=== PATIENT | male | born 1985 | race Caucasian/White ===

== ENCOUNTER 2018-05-30 15:00 | Emergency (ER) | payer BC ==
[2018-05-30] MEDS ORDERED: NORMAL SALINE 1000 ML 1,000 ML IV ONE ×2 (15:17→16:07)
[2018-05-30 15:28] LABS: ABSOLUTE BASOPHILS # (AUTO) 0.1 10^3/uL (0.0-0.2); ABSOLUTE EOSINOPHILS # (AUTO) 0.1 10^3/uL (0.0-0.6); ABSOLUTE LYMPHOCYTES (AUTO) 2.6 10^3/uL (0.5-4.7); ABSOLUTE MONOCYTES (AUTO) 0.5 10^3/uL (0.1-1.4); ABSOLUTE NEUT (AUTO) 13.4 10^3/uL (1.7-8.2); BASOPHILS % (AUTO) 0.4 % (0-2); EOSINOPHILS % (AUTO) 0.5 % (0-6); HEMATOCRIT 43.7 % (37.9-51.0); LYMPHOCYTES % (AUTO) 15.5 % (13-45); MEAN CORPUSCULAR HEMOGLOBIN 31.1 pg (27.0-33.4); MEAN CORPUSCULAR HGB CONC 34.3 g/dL (32.0-36.0); MEAN CORPUSCULAR VOLUME 91 fl (80-97); PLATELET COUNT 253 10^3/uL (150-450); RED BLOOD COUNT 4.82 10^6/uL (4.35-5.55); RED CELL DISTRIBUTION WIDTH 13.8 % (11.5-14.0); SEGMENTED NEUTROPHILS % (AUTO) 80.6 % (42-78); TOTAL CELLS COUNTED % (AUTO) 100 %; WHITE BLOOD COUNT 16.6 10^3/uL (4.0-10.5)
--- NOTE | 2018-05-30 15:38 | RADIOLOGY REPORT (SQ) ---
EXAM DESCRIPTION: CHEST 2 VIEWS COMPLETED DATE/TIME: 05/30/2018 3:30 pm REASON FOR STUDY: 10; chest pain COMPARISON: None. EXAM PARAMETERS: NUMBER OF VIEWS: two views TECHNIQUE: Digital Frontal and Lateral radiographic views of the chest acquired. RADIATION DOSE: NA LIMITATIONS: none FINDINGS: LUNGS AND PLEURA: No opacities, masses or pneumothorax. No pleural effusion. MEDIASTINUM AND HILAR STRUCTURES: No masses or contour abnormalities. HEART AND VASCULAR STRUCTURES: Heart normal size. No evidence for failure. BONES: No acute findings. HARDWARE: None in the chest. OTHER: No other significant finding. IMPRESSION: No acute abnormality of the lungs. TECHNICAL DOCUMENTATION: JOB ID: [id number] [employer]- All Rights Reserved Reading location - IP/workstation name: [email or web address]
--- NOTE | 2018-05-30 16:16 | ER Document Report ---
ED Syncope and Near Syncope - General Chief Complaint: Syncope Stated Complaint: CHEST PAIN Time Seen by Provider: 05/30/18 15:13 Information source: Patient Notes: 32-year-old male who presents today with an unwitnessed syncopal-like episode. Patient states he has been sober for 6 months but started to drink up to 8 bottles of wine a day starting 7 days ago. His last drink was this morning. Patient states he was walking down the hallway when he awoke on the floor. He denies incontinence. He denies a history of alcohol withdrawal seizures. His last drink was this morning. Patient states around 25 minutes after he got up he started to have some nonradiating substernal chest discomfort and this scared him. Denies shortness of breath, calf pain or leg swelling, recent trips or travel. No history of DVT/PE. Patient in the room has exceptional family support including his aunt and his girlfriend. Patient is actually very affluent noting multiple [place]. He has no suicidal or homicidal ideations. He states he is going to go to a rehab facility if and when cleared here at this facility. TRAVEL OUTSIDE OF THE [place] IN LAST 30 DAYS: No - Related Data Allergies/Adverse Reactions: No Known Allergies Allergy (Unverified 05/30/18 15:54) Past Medical History - Social History Smoking Status: Unknown if Ever Smoked Family History: Reviewed & Not Pertinent Review of Systems - Review of Systems Constitutional: denies: Fever EENT: denies: Eye discharge, Nose discharge Cardiovascular: Chest pain, Heart racing. denies: Palpitations Respiratory: denies: Short of breath Gastrointestinal: denies: Vomiting Genitourinary: denies: Dysuria Musculoskeletal: denies: Leg swelling Skin: Other - no hives. denies: Rash Neurological/Psychological: Other - no slurred speech -: Yes All other systems reviewed and negative Physical Exam - Vital signs Vitals: Temp Pulse Resp BP Pulse Ox 98.7 F 125 H 29 H 132/92 H 91 L 05/30/18 15:30 05/30/18 15:30 05/30/18 15:30 05/30/18 15:30 05/30/18 15:30 Notes: Reviewed vital signs and nursing note as charted by RN. CONSTITUTIONAL: Alert and oriented and responds appropriately to questions. Well -appearing; well-nourished; no active tremors present HEAD: Normocephalic; atraumatic EYES: PERRL; Conjunctivae clear, sclerae non-icteric ENT: Normal nose; no rhinorrhea; moist mucous membranes; pharynx without lesions noted NECK: Supple without meningismus; non-tender; no cervical lymphadenopathy, no masses CARD: Tachycardic and regular; no murmurs; symmetric distal pulses RESP: Normal chest excursion without splinting or tachypnea; breath sounds clear and equal bilaterally; no wheezes, no rhonchi, no rales ABD/GI: Normal bowel sounds; non-distended; soft, non-tender BACK: The back appears normal and is non-tender to palpation EXT: Normal ROM in all joints; non-tender to palpation; no edema SKIN: No acute lesions noted NEURO: CN 2-12 intact; 5/5 bilateral upper and lower extremity strength with sensation intact to light touch PSYCH: The patient's mood and manner are appropriate. Grooming and personal hygiene are appropriate Course - Re-evaluation Re-evalutation: Given the above history and physical examination with tachycardia, with no history of alcohol withdrawal seizures, no incontinence No headaches or focal neurological deficits, I do believe an alcohol withdrawal seizure or intracranial process to be unlikely. Given the tachycardia with the chest discomfort, with initial oxygen room air saturation at 91, I will obtain basic labs, cardiac labs, and a d-dimer. EKG shows a heart rate of 125, sinus tachycardia, normal axis, no obvious ST elevation or depression, narrow QRS. 05/30/18 16:24 Cardiac labs and d-dimer as recorded. Heart rate is currently 115. Patient denies any chest pain at this time. 05/30/18 16:29 Chest x-ray shows normal heart, normal mediastinum, no fractures, normal lung stone, no pneumothorax. 05/30/18 17:10 Blood alcohol level as recorded. CT scan of the chest as recorded. Patient's heart rate is currently 104. Second liter of fluid is infusing. Patient still has no pain or focal neurological deficits. 05/30/18 17:17 Patient's heart rate is now 98. Satting 98% on room air. He denies any and all pain. Family is in the room and is very supportive. Patient states he will go to a rehab facility. He does not want us to set this up for him. He states he has an addictionologist as well as a psychologist to do this for him. - Vital Signs Vital signs: Temp Pulse Resp BP Pulse Ox 98.7 F 125 H 29 H 132/92 H 91 L 05/30/18 15:30 05/30/18 15:30 05/30/18 15:30 05/30/18 15:30 05/30/18 15:30 - Laboratory Result Diagrams: 05/30/18 15:08 05/30/18 15:08 Laboratory results interpreted by me: 05/30/18 05/30/18 05/30/18 15:08 15:08 15:08 WBC 16.6 H Seg Neutrophils % 80.6 H Absolute Neutrophils 13.4 H D-Dimer 0.76 H Glucose 135 H Discharge - Discharge Clinical Impression: Syncope and collapse Alcohol intoxication Qualifiers: Complication of substance-induced condition: uncomplicated Qualified Code(s): F10.920 - Alcohol use, unspecified with intoxication, uncomplicated Chest pain Qualifiers: Chest pain type: unspecified Qualified Code(s): R07.9 - Chest pain, unspecified Condition: Good Disposition: HOME, SELF-CARE Additional Instructions: Come back immediately with any return of pain, lightheadedness or dizziness, fevers, shortness of breath, leg swelling, or any other acute problems. Please make sure that she follow-up for treatment as we have discussed. God bless your efforts. You can do it if YOU want to.
[2018-05-30 16:29] LABS: ALCOHOL 246 mg/dL (NONE DETECTED); ANION GAP 17 (5-19); BLOOD UREA NITROGEN 12 mg/dL (7-20); CALCIUM 8.9 mg/dL (8.4-10.2); CARBON DIOXIDE 23 mmol/L (22-30); CHLORIDE 101 mmol/L (98-107); GLUCOSE 135 mg/dL (75-110); POTASSIUM 4.3 mmol/L (3.6-5.0); SODIUM 141.3 mmol/L (137-145)
--- NOTE | 2018-05-30 16:55 | RADIOLOGY REPORT (SQ) ---
EXAM DESCRIPTION: CTA CHEST COMPLETED DATE/TIME: 05/30/2018 4:40 pm REASON FOR STUDY: 10; chest pain with elevated d dimer COMPARISON: Chest radiograph 05/30/2018 TECHNIQUE: CT scan of the chest performed using helical scanning technique with dynamic intravenous contrast injection. Images reviewed with lung, soft tissue and bone windows. Reconstructed coronal and sagittal MPR images reviewed. Additional 3 dimensional post-processing performed to develop Maximal Intensity Projection images (LA P). All images stored on PACS. All CT scanners at this facility use dose modulation, iterative reconstruction, and/or weight based d osing when appropriate to reduce radiation dose to as low as reasonably achievable (ALARA). [facility]: Dose Right [facility]: CareDose [facility]: Dose Right [facility]: Teradose 4D [facility]: BioActor CONTRAST TYPE AND DOSE: contrast/concentration: Isovue 350.00 mg/ml; Total Contrast Delivered: 79.0 ml; Total Saline Delivered: 80.0 ml Contrast bolus optimized for the pulmonary arteries. Not diagnostic for the aorta RENAL FUNCTION: None required. The patient is less than 50 years old. RADIATION DOSE: CT Rad equipment meets quality standard of care and radiation dose reduction techniq ues were employed. CTDIvol: 15.5 - 24.8 mGy. DLP: 547 mGy-cm. . LIMITATIONS: None. FINDINGS: LUNGS AND PLEURA: No masses, infiltrates, or pneumothorax. No pleural effusions or pleura l calcifications. AORTA AND GREAT VESSELS: Ectatic ascending aorta. Contrast bolus timing optimized for evaluation of the aorta. HEART: No pericardial effusion. No significant coronary artery calcifications. PULMONARY ARTERIES: No emboli visualized in the main pulmonary arteries or the segmental branches. HILAR AND MEDIASTINAL STRUCTURES: No masses or lymphadenopathy. Hiatal hernia. HARDWARE: None in the chest. UPPER ABDOMEN: Diffuse fatty infiltration consistent with hepatic steatosis. Superimposed focal fatt y infiltration of the right hepatic lobe. No acute findings. THYROID AND OTHER SOFT TISSUES: No masses. No adenopathy. BONES: No acute or significant finding. 3D MIPS: Confirm above findings. OTHER: No other significant finding. IMPRESSION: No central or segmental pulmonary emboli. Chronic and incidental findings as detailed a belgica. COMMENT: Quality ID # [id number]: Final reports with documentation of one or more dose reduction techniques (e.g., Automated exposure control, adjustment of the mA and/or kV according to patient size, use of iterative reconstruction technique) TECHNICAL DOCUMENTATION: JOB ID: [id number] [employer]- All Rights Reserved Reading location - IP/workstation name: [email or web address]
--- NOTE | 2018-05-30 17:25 | EKG REPORT ---
SEVERITY:- OTHERWISE NORMAL ECG - SINUS TACHYCARDIA : Confirmed by: Dallas Marion MD 30-May-2018 17:24:44
[2018-05-30 18:13] VITALS: BP 149/94
== END 2018-05-30 18:12 | disposition home or self-care (01) ==
LOC: ER 15:00
DX: R07.9 Chest pain, unspecified (principal); F10.129 Alcohol abuse with intoxication, unspecified; R55 Syncope and collapse; R00.0 Tachycardia, unspecified
CPT/HCPCS: 93005; 99285; 96360; 96361; 36415; 80307; 82550; 85025; 80048; 84484; 85379; 71046; 71275; 93010; J7030

== ENCOUNTER 2019-07-11 09:40 | Emergency (ER) | payer BC ==
[2019-07-11] MEDS ORDERED: NORMAL SALINE 1000 ML 1,000 ML IV ONE ×2 (10:03→12:49)
[2019-07-11 10:24] LABS: ABSOLUTE BASOPHILS # (AUTO) 0.1 10^3/uL (0.0-0.2); ABSOLUTE LYMPHOCYTES (AUTO) 3.1 10^3/uL (0.5-4.7); ABSOLUTE NEUT (AUTO) 9.2 10^3/uL (1.7-8.2); BASOPHILS % (AUTO) 0.7 % (0-2); EOSINOPHILS % (AUTO) 0.2 % (0-6); HEMOGLOBIN 16.9 g/dL (13.5-17.0); LYMPHOCYTES % (AUTO) 23.4 % (13-45); MEAN CORPUSCULAR HEMOGLOBIN 32.7 pg (27.0-33.4); MEAN CORPUSCULAR VOLUME 91 fl (80-97); MONOCYTES % (AUTO) 7.3 % (3-13); PLATELET COUNT 416 10^3/uL (150-450); RED BLOOD COUNT 5.18 10^6/uL (4.35-5.55); RED CELL DISTRIBUTION WIDTH 13.7 % (11.5-14.0); SEGMENTED NEUTROPHILS % (AUTO) 68.4 % (42-78); TOTAL CELLS COUNTED % (AUTO) 100 %; WHITE BLOOD COUNT 13.4 10^3/uL (4.0-10.5)
[2019-07-11 10:27] LABS: INTERNATIONAL RATION (INR) 0.95; PROTHROMBIN TIME 12.7 SEC (11.4-15.4)
[2019-07-11 10:28] LABS: PARTIAL THROMBOPLASTIN TIME 27.3 SEC (23.5-35.8)
--- NOTE | 2019-07-11 10:32 | RADIOLOGY REPORT (SQ) ---
EXAM DESCRIPTION: CHEST SINGLE VIEW IMAGES COMPLETED DATE/TIME: 07/11/2019 10:15 am REASON FOR STUDY: ams COMPARISON: None. EXAM PARAMETERS: NUMBER OF VIEWS: One view. TECHNIQUE: Single frontal radiographic view of the chest acquired. RADIATION DOSE: NA LIMITATIONS: None. FINDINGS: LUNGS AND PLEURA: No opacities, masses or pneumothorax. No pleural effusion. MEDIASTINUM AND HILAR STRUCTURES: No masses. Contour normal. HEART AND VASCULAR STRUCTURES: Heart normal in size. Normal vasculature. BONES: No acute findings. HARDWARE: None in the chest. OTHER: No other significant finding. IMPRESSION: NO ACUTE RADIOGRAPHIC FINDING IN THE CHEST. TECHNICAL DOCUMENTATION: JOB ID: [id number] 2010 [employer]- All Rights Reserved Reading location - IP/workstation name: [email or web address]
[2019-07-11 10:36] LABS: ALBUMIN 5.4 g/dL (3.5-5.0); ALCOHOL 287 mg/dL (NONE DETECTED); ALKALINE PHOSPHATASE 149 U/L (38-126); ASPARTATE AMINO TRANSFERASE 42 U/L (17-59); BILIRUBIN,DIRECT 0.2 mg/dL (0.0-0.4); BILIRUBIN,TOTAL 0.8 mg/dL (0.2-1.3); BLOOD UREA NITROGEN 12 mg/dL (7-20); CALCIUM 9.6 mg/dL (8.4-10.2); GLUCOSE 110 mg/dL (75-110); SALICYLATE 2.1 mg/dL (2.0-20.0)
[2019-07-11 10:37] LABS: ACETAMINOPHEN < 10 ug/mL (10-30)
--- NOTE | 2019-07-11 10:38 | RADIOLOGY REPORT (SQ) ---
EXAM DESCRIPTION: CT HEAD WITHOUT IMAGES COMPLETED DATE/TIME: 07/11/2019 10:16 am REASON FOR STUDY: ams COMPARISON: None. TECHNIQUE: Axial images acquired through the brain without intravenous contrast. Images reviewed wi th bone, brain and subdural windows. Additional sagittal and coronal reconstructions were generated. Images stored on PACS. All CT scanners at this facility use dose modulation, iterative reconstruction, and/or weight based d osing when appropriate to reduce radiation dose to as low as reasonably achievable (ALARA). [facility]: Dose Right [facility]: CareDose [facility]: Dose Right [facility]: Teradose 4D [facility]: Branded Reality RADIATION DOSE: CT Rad equipment meets quality standard of care and radiation dose reduction techniq ues were employed. CTDIvol: 53.2 mGy. DLP: 1044 mGy-cm. mGy. LIMITATIONS: None. FINDINGS: VENTRICLES: Normal size and contour. CEREBRUM: No masses. No hemorrhage. No midline shift. No evidence for acute infarction. Normal gra y/white matter differentiation. No areas of low density in the white matter. CEREBELLUM: No masses. No hemorrhage. No alteration of density. No evidence for acute infarction. EXTRAAXIAL SPACES: No fluid collections. No masses. ORBITS AND GLOBE: No intra- or extraconal masses. Normal contour of globe without masses. CALVARIUM: No fracture. PARANASAL SINUSES: No fluid or mucosal thickening. SOFT TISSUES: No mass or hematoma. OTHER: No other significant finding. IMPRESSION: NORMAL BRAIN CT WITHOUT CONTRAST. EVIDENCE OF ACUTE STROKE: NO. COMMENT: Quality ID # [id number]: Final reports with documentation of one or more dose reduction techniques (e.g., Automated exposure control, adjustment of the mA and/or kV according to patient size, use of iterative reconstruction technique) TECHNICAL DOCUMENTATION: JOB ID: [id number] 2010 [employer]- All Rights Reserved Reading location - IP/workstation name: [email or web address]
[2019-07-11 10:41] LABS: CARBON DIOXIDE 16 mmol/L (22-30); CHLORIDE 94 mmol/L (98-107)
[2019-07-11 10:42] LABS: ANION GAP 26 (5-19)
[2019-07-11 11:08] LABS: VENOUS BLOOD BASE EXCESS -7.7 mmol/L; VENOUS BLOOD HCO3 16.3 mmol/L (20-32); VENOUS BLOOD PCO2 30.5 mmHg (35-63); VENOUS BLOOD PH 7.35 (7.30-7.42)
[2019-07-11 12:04] LABS: APPEARANCE,URINE CLEAR; BILIRUBIN,URINE NEGATIVE (NEGATIVE); COLOR,URINE YELLOW; GLUCOSE, URINE NEGATIVE (NEGATIVE); KETONES,URINE 20 mg/dL (NEGATIVE); PROTEIN,URINE 100 mg/dL (NEGATIVE); UROBILINOGEN,URINE NEGATIVE mg/dL (<2.0)
[2019-07-11 12:22] LABS: URINE AMPHETAMINES SCREEN NEGATIVE; URINE BARBITURATES SCREEN NEGATIVE; URINE BENZODIAZEPINES SCREEN NEGATIVE; URINE COCAINE SCREEN NEGATIVE; URINE MARIJUANA (THC) SCREEN NEGATIVE; URINE METHADONE SCREEN NEGATIVE; URINE PHENCYCLIDINE SCREEN NEGATIVE
--- NOTE | 2019-07-11 13:19 | ER Document Report ---
ED General - General TRAVEL OUTSIDE OF THE [place] IN LAST 30 DAYS: No <PRIYANKA OGDEN - Last Filed: 07/11/19 14:11> <EVELYN BOWEN - Last Filed: 07/11/19 16:45> - General Chief Complaint: Chest Pressure Stated Complaint: ALTERED MENTAL STATUS Time Seen by Provider: 07/11/19 09:44 - HPI Notes: Chief complaint: Chest pain, syncope and altered mental status History of present illness: [employer] contacted EMS because patient was complaining of chest pain and they also noted that he "was not acting right". [employer] Registrar was advised that he had "probably passed out" while sitting in his office. Preliminary information regarding this gentleman was primarily obtained from EMS as he was somewhat incoherent and appeared to be quite intoxicated when he arrived here. Patient initially denied any use of drugs or alcohol when I spoke with him. He stated that he was having burning discomfort in the center of his chest without radiation. He denied vomiting. He denies any history of current treatment for any medical condition and specifically denies any known history of CAD, diabetes mellitus or hypertension. States that he is an occasional smoker. Denies family history of cardiac disease. I went back and reviewed past medical records and find this man was here with an almost identical presentation approximately 1 year ago in the emergency department. He was quite intoxicated at that time and was offered but declined detox referral. Patient denies any suicidal or homicidal intent. Denies hallucinations. He continues to deny that he is drinking. (PRIYANKA OGDEN) - Related Data Allergies/Adverse Reactions: No Known Allergies Allergy (Unverified 05/30/18 15:54) Past Medical History - General Information source: Patient, Emergency Med Personnel, [facility] Records - Social History Smoking Status: Current Some Day Smoker Frequency of alcohol use: Heavy - Patient denies use of alcohol but is obviously quite intoxicated at this time with heavy aroma of alcohol present. Past records indicate heavy abuse of alcohol. Drug Abuse: None Occupation: Realtor Family History: Reviewed & Not Pertinent Patient has suicidal ideation: No Patient has homicidal ideation: No - Past Medical History Cardiac Medical History: Reports: None Endocrine Medical History: Denies: Hx Diabetes Mellitus Type 1, Hx Diabetes Mellitus Type 2 Renal/ Medical History: Denies: Hx Peritoneal Dialysis Past Surgical History: Reports: Hx Orthopedic Surgery <PRIYANKA OGDEN - Last Filed: 07/11/19 14:11> Review of Systems - Review of Systems -: Yes ROS unobtainable due to patient's medical condition <PRIYANKA OGDEN - Last Filed: 07/11/19 14:11> Physical Exam <PRIYANKA OGDEN - Last Filed: 07/11/19 14:11> - Vital signs Vitals: Resp Pulse Ox 14 93 07/11/19 09:45 07/11/19 09:45 - Notes Notes: GENERAL: Well-developed well-nourished male appearing approximately stated age with strong odor of alcohol present and slurred speech and ataxia noted. SKIN: Slightly flushed. Good turgor. HEAD: Normocephalic atraumatic. EYES: PERRLA. EOMI. Conjunctivae bilaterally injected. EARS: CANALS AND TMS CLEAR. NOSE: CLEAR. MOUTH: Moist mucosa. Good dentition. No stridor or edema. No drooling. Throat: Clear. NECK: Supple. No masses or thyromegaly. No adenopathy. Carotids 2+ without bruits. No JVD. BACK: Symmetrical without tenderness. CHEST: Respirations unlabored. Breath sounds clear and symmetrical. HEART: Tachycardic regular rhythm. No murmur gallop or rub. ABDOMEN: Soft nontender without masses, organomegaly or rebound. Bowel sounds normally active. No bruits. GENITALIA: Deferred. EXTREMITIES: No edema. No calf tenderness. Cap refill less than 1.5 seconds. Dorsalis pedis and posterior tibial pulses 3+ and symmetrical. NEUROLOGICAL: GCS 15. Awake and somewhat slow to respond but oriented x3. Normal gait. Very slurred speech. Cranial nerves II through XII intact. Sensorimotor normal. Ataxic. Normal tone. (PRIYANKA OGDEN) Course - Laboratory Result Diagrams: 07/11/19 09:50 07/11/19 09:50 - Diagnostic Test Radiology reviewed: Reports reviewed - Normal noncontrast head CT per radiolog ist. Normal chest x-ray per radiologist. <OGDENPRIYANKA - Last Filed: 07/11/19 14:11> - Laboratory Result Diagrams: 07/11/19 09:50 07/11/19 09:50 <EVELYN BOWEN - Last Filed: 07/11/19 16:45> - Re-evaluation Re-evalutation: 07/11/19 13:23 EMS noted that the patient had an elevated lactate level 5.1. His alcohol here is about 287. His urine drug screen is negative. His initial venous pH is 7.33 with a lactate here of around 5. He is tachycardic. His overall appearance as well as clinical story would suggest to me that he may have had a seizure and w as postictal at time of transport here. He is obviously quite intoxicated. His head CT and chest x-ray are normal. White count is mildly elevated 13.2. Temperature was 99. He has no obvious source of infection by exam here. I go to give him some IV hydration and recheck a lactate. His twelve-lead EKG shows sinus tachycardia and is otherwise unremarkable. His initial troponin is normal. He is no longer complaining of any chest discomfort and this really sounds more like something of GI origin. Plan is to observe him for a while in emergency department with some IV hydration and then repeat blood alcohol, lactate, troponin and EKG. Patient was confronted with the high alcohol level and continues to deny abuse of alcohol. He stated that he wanted to sign himself out AMA. I told him at this level of alcohol intoxication this is not appropriate and try to persuade him to stay for several hours to complete work-up and to allow the alcohol to be metabolized. He is vehemently opposed to this and for this reason I will place him under involuntary commitment. I have requested consultation with the behavioral health service. 07/11/19 14:12 Further care of this patient is turned over to Dr. Bhatti at 1412 hrs. with final disposition pending. (PRIYANKA OGDEN) - Vital Signs Vital signs: Temp Pulse Resp BP Pulse Ox 99.8 F 21 H 137/112 H 94 07/11/19 09:53 07/11/19 09:54 07/11/19 09:54 07/11/19 09:54 - Laboratory Laboratory results interpreted by me: 07/11/19 07/11/19 07/11/19 09:50 09:50 09:50 WBC 13.4 H Absolute Neuts (auto) 9.2 H VBG pCO2 VBG HCO3 Sodium 136.1 L Chloride 94 L Carbon Dioxide 16 L Anion Gap 26 H Lactic Acid 5.2 H Alkaline Phosphatase 149 H Ammonia Total Protein 9.0 H Albumin 5.4 H Urine Protein Urine Ketones Urine Blood Acetaminophen < 10 L 07/11/19 07/11/19 07/11/19 10:50 10:50 11:45 WBC Absolute Neuts (auto) VBG pCO2 30.5 L VBG HCO3 16.3 L Sodium Chloride Carbon Dioxide Anion Gap Lactic Acid Alkaline Phosphatase Ammonia < 8.7 L Total Protein Albumin Urine Protein 100 H Urine Ketones 20 H Urine Blood SMALL H Acetaminophen 07/11/19 07/11/19 12:00 13:40 WBC Absolute Neuts (auto) VBG pCO2 VBG HCO3 Sodium Chloride Carbon Dioxide Anion Gap Lactic Acid 4.8 H 4.4 H Alkaline Phosphatase Ammonia Total Protein Albumin Urine Protein Urine Ketones Urine Blood Acetaminophen - EKG Interpretation by Me Additional EKG results interpreted by me: 07/11/19 14:06 Twelve-lead EKG from 1003 hrs. reviewed contemporaneously by me demonstrates sinus tachycardia rate of 122. Intervals are normal. QRS axis is +[address]/T wave changes. (PRIYANKA OGEDN) Discharge <PRIYANKA OGDEN - Last Filed: 07/11/19 14:11> <EVELYN BOWEN - Last Filed: 07/11/19 16:45> - Discharge Clinical Impression: Chronic alcoholism, Altered mental status associated with intoxication Acute alcohol intoxication Qualifiers: Complication of substance-induced condition: with unspecified complication Qualified Code(s): F10.929 - Alcohol use, unspecified with intoxication, unspecified Condition: Stable Disposition: HOME, SELF-CARE Additional Instructions: Acute Alcohol Intoxication Your evaluation revealed very high levels of alcohol. You can from d rinking a large amount of alcohol rapidly! Further, there's the risk of falls, traffic accidents, and fights. A high portion (about 50 percent) of the serious injuries seen in hospital emergency rooms are caused by alcohol. Alcohol overdosage is usually due to an underlying emotional or psychiatric problem. You may benefit from counselling. If "binge" drinking is an ongoing problem for you, or if you drink ANY AMOUNT of alcohol EVERY day, you most likely have a tendency to alcoholism. You should avoid alcohol totally. We can refer you for treatment. Persons with alcohol problems are often also prone to other addictions -- you should discuss any use of medications or drugs with the doctor. You should be watched at home for the next several hours by someone who has not been drinking. Get extra fluids for the next 24 hours. Call the doctor if there is repeated vomiting, increasing headache, decreasing level of alertness, or any other worsening.
--- NOTE | 2019-07-11 15:09 | ER Document Report ---
Doctor's Note Notes: 07/11/19 14:14 Met with Patient who reported he had dinner with his now ex-girlfriend last evening starting about 8 pm. He indicated he began drinking white wine at about the same time. He reported eating a baked potato, steak and asparagus. He indicated he ended the relationship with his girlfriend and continued to drink wine throughout the night and into container finisher. He reported waking at approximately 6 am and driving to the office. He indicated that once at the office, he began experiencing pressure and pain in his chest, resulting in his call to EMS. Patient stated once at [facility] and after initial triage and treatment, he wanted to leave, but the ED Physician advised him he could not yet leave as his MILAGRO was too high (287) and the physician would place him on IVC if he tried to leave AMA. Patient continued to voice his distaste for this approach, stated he was going to call the OFFICE SUPPORT Alissa Tamez, but was advised there were formal measures to file a complaint if he chose and advised he might want to wait until he was more sober as his MILAGRO was more than 4 times the legal limit. Discussed with Patient he had every right to file a complaint but would want him to have his thoughts organized and clear when doing so. Provided Patient with a Patient's Rights handout with information on how to file a complaint if he chooses to do such. Patient was agreeable that he should be more sober before taking such action. Continued discussion with Patient regarding his drinking habits. He indicated he drinks about once a year and identifies that when he drinks, he drinks to excess. He reported his drinking negatively impacted his marriage and he currently y is linked with an Addictionologist (physician) in [place] and a Therapist which he generally sees weekly (until the stay at home order due to COVID-19). Patient reported current medications as: Buspar 10 mg twice per day; Trazadone 150 mg at bedtime; Prozac 40 mg twice per day; and Propranolol 20 mg twice per day. He indicated he takes his medications as prescribed and feels as though they are helpful. He denied any current medical problems to include heart or blood pressure problems, seizures, or a family history of the same. He reported a very supportive family with his mother and ex- being local and close in relationship. His two older brothers are close with him in relationship as well. Patient denied any current financial hardships. He indicated he has two children ages 7 and 3 of which he has custody of every other weekend and on . Patient was alert and oriented to person, place, time, and circumstance. mood was cooperative and euthymic, while affect was mood congruent with full range of expression. He denied current or past suicidal/ homicidal ideation, intent or plan. He denied auditory / visual hallucinations and there was no evidence of delusions. Thought processes were logical, organized, and linear. Conversational speech was within normal limits for rate, tone, and prosody. Intellectual abilities were estimated within the average range. Eye contact was well maintained. Attention and concentration was fair, as was judgment, insight, and impulse control. Themes for Intervention: Recent relational conflict and difficulties; exploration of stressful experiences; exploration of health concerns and illnesses; discussion of medication and its impact when drinking; discussion of importance of therapeutic appointment adherence; discussion of anxiety; coping with and working through issues of addictions and related concerns. Therapeutic Interventions: Psycho-education and instruction on anxiety and panic; psycho-education on addictions and their management. Impression / Plan: Patient is cleared from acute psychiatric care. Patient's MILAGRO was 287, over 4x the legal limit. The main therapeutic interventions consisted of emphasis on here and now functioning, focus on improved problem solving and coping, and plans for better self-care. The recent crisis appears contained and the Patient is agreeable to following up with his community based established physician and therapist. Medications are reported as effective by the Patient, thus no medication changes were recommended by the consulting psychiatrist. A Patient's rights brochure and local resources were provided to the Patient. Attending Physician in agreement with recommendations and disposition.
--- NOTE | 2019-07-11 16:47 | ER Document Report ---
Doctor's Note Notes: 07/11/19 16:45 Patient is alert and oriented at this time. He states he does feel back to normal and would like to go home. His former spouse has come to take him home. I did clarify some history with him, he has been cardioverted in the past for atrial fibrillation while at a hospital in [facility]. He does have therapist and other providers in [facility] to help him with his alcohol problem. He plans to reconnect with them.
[2019-07-11 16:52] VITALS: BP 147/96
--- NOTE | 2019-07-11 23:21 | EKG REPORT ---
SEVERITY:- OTHERWISE NORMAL ECG - SINUS TACHYCARDIA : Confirmed by: James Gaxiola 11-Jul-2019 23:21:17
== END 2019-07-11 16:55 | disposition home or self-care (01) ==
LOC: ER 09:40
DX: R41.82 Altered mental status, unspecified (principal); F10.229 Alcohol dependence with intoxication, unspecified; R07.9 Chest pain, unspecified; F17.200 Nicotine dependence, unspecified, uncomplicated
CPT/HCPCS: 93005; 99285; 96360; 96361; 36415; 80307 ×4; 82140; 83605; 83735; 85025; 85610; 85730; 80053; 81001; 84484; 82803; 71045; 70450; 93010; J7030